=== PATIENT | male | born 1950 ===

== ENCOUNTER 2017-12-07 04:07 | Emergency (ER) | payer MEDICARE ==
[2017-12-07] MEDS ORDERED: Tdap Vaccine 0.5 ml Vial (10-64 yrs) IM ONE (04:23)
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
[2017-12-07 06:19] VITALS: RESP 16; O2SAT 97
[2017-12-07 07:02] VITALS: BP 143/91; PULSE 82; TEMP 98.7
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
== END 2017-12-07 07:04 | disposition home or self-care (01) ==
LOC: H.ER 04:07
DX: S09.90XA Unspecified injury of head, initial encounter (principal); S02.2XXA Fracture of nasal bones, initial encounter for closed fracture; S01.81XA Laceration without foreign body of other part of head, initial encounter; S80.211A Abrasion, right knee, initial encounter; S80.212A Abrasion, left knee, initial encounter; Y04.0XXA Assault by unarmed brawl or fight, initial encounter; Y92.89 Other specified places as the place of occurrence of the external cause; I10 Essential (primary) hypertension; Z88.0 Allergy status to penicillin